=== PATIENT | male | born 1935 | race Caucasian/White ===

== ENCOUNTER 2020-09-09 15:54 | Inpatient (IN) | payer MEDICARE ==
[~2020-09-09] VITALS: Ht 182.9 cm; Wt 69.4 kg
--- NOTE | ~2020-09-09 | OP ---
[address] [address] OPERATIVE REPORT Name: LATONYA BROOKS Room: [address] IN .R.#: [id number] Admission: 09/09/20 Attend Phys: Wenceslao Crawford MD Discharge: Date of : 37 Report #: [id number] THIS REPORT FOR: cc: Zo Diane MD, Kristi MD Kesl, James B. DO ~ DOC #: [id number] Pedro Leach DO DATE OF SURGERY: 09/11/2020 PREOPERATIVE DIAGNOSIS: Right displaced femoral neck fracture. POSTOPERATIVE DIAGNOSIS: Right displaced femoral neck fracture. PROCEDURE: Right clary-hip arthroplasty. SURGEON: Pedro Leach DO. ASSISTANTS: 1. Maciel Guardado DO. 2. Chacorta Jacome DO. 3. Edison Knox DO. ANESTHESIA: General. ANTIBIOTICS: Ancef IV. FLUIDS: Please see anesthesia report. COMPLICATIONS: None. SPECIMENS: None. DRAINS: None. CONDITION OF THE PATIENT: Stable to PACU. IMPLANTS: Neli press-fit echo stem, standard offset, size 13, 53 bipolar shell with standard neck adaptor. INDICATIONS FOR PROCEDURE: Displaced femoral neck fracture. Obtained consent from power of state attorney. Family wished to have surgery for palliative pain control as well as mobilization as the patient is on hospice. DESCRIPTION OF PROCEDURE: I marked the right lower extremity in the presence of operative team members and everyone agreed correct. He was taken back to the [address] [address] OPERATIVE REPORT Name: LATONYA BROOKS Room: [address] IN M.R.#: [id number] Admission: 09/09/20 Attend Phys: Wenceslao Crawford MD Discharge: Date of : 36 Report #: [id number] operative suite, general anesthetic administered, transferred over to the operating table, placed in the left lateral decubitus position, well padded and secured. The right lower extremity was sterilely prepped and draped in standard fashion. Timeout performed, indicating correct patient, procedure, site, antibiotics and implants were present and sterile. All team members agreed. Anterolateral approach utilized, scalpel through skin, full thickness flaps down to the IT band and fascia incised. Charnley retractor was placed deep, glute medius and minimus taken off the trochanter, leaving a cuff of tissue for repair and also leaving a mallet undisturbed at the tip. Capsule was another layer. T capsulotomy performed, making sure the labrum was undisturbed and protected. Cleaned up the neck, cut one fingerbreadth above the lesser, removed the head and neck. No concerns. Findings were consistent with a standard femoral neck fracture, osteoporotic disease. We sized on the back table, trialed the 53 head within the acetabulum. This was appropriate in size, prepared the femur, box osteotome, canal finder, distal reamers and broaches. Size 13 was appropriate, good fit and fill. Based on preoperative templating, did not need increased offset. Therefore, the final 13 echo press-fit stem, standard offset, done on the back table, irrigated down the canal of the femur with normal saline and implanted the final stem uneventfully in a good position, had excellent stability and fit. Again, trialing went with standard, leg lengths were appropriate and stability was excellent in all planes. I could not find any episodes of instability or dislocation anywhere. We then dislocated the hip. Final 53 shell and standard neck adapter done on the back table, engaged on the Dang taper appropriately. Cleaned the acetabulum of any debris, reduced the hip. With all final components in place, there was excellent stability and placement of the components. No instability could be found anywhere. We irrigated thoroughly with normal saline, confirmed hemostasis, maintained. Closed the capsule with #1 Vicryl. Glutes were repaired with through bone sutures using #5 Ethibond and oversewn with #1 Vicryl. IT band and fascia were closed with #1 Vicryl and oversewn with #1 Stratafix, subq 2-0 Monocryl, skin 3-0 Stratafix and glue. Debriefing performed, confirming the procedure, blood loss and that all counts were correct and final. All team members agreed. A sterile silver dressing applied. He was transferred off the operative table with leg lengths appropriate. Abductor pillow placed, extubated and taken to PACU stable. POSTOPERATIVE COURSE AND EVALUATION. I spoke with his daughter and addressed questions she had to her satisfaction. She was thankful for my time and effort. He was resting in PACU, stable vital signs, pain controlled, neurovascularly intact. Compartments soft and compressible. No obvious signs of DVT. PACU films showed stable prosthesis, in good position and alignment. No fracture or dislocation. He will weightbear as tolerated, anterolateral hip precautions, PT, OT. DVT prophylaxis will be pharmacologic and mechanical as instructed. COVID protocol followed at all times. [address] [address] OPERATIVE REPORT Name: LATONYA BROOKS Room: [address]#: [id number] Admission: 09/09/20 Attend Phys: Wenceslao Crawford MD Discharge: Date of : 36 Report #: [id number] DO RISSA Simmons/MARYAM By: [id number] [id number] Leach DO /anabell
[~2020-09-09 15:54] MED LIST: ASPIRIN EC81 M1 PO; LISINOPRIL10 MG PO; OMEPRAZOLE 20 M20 M1 PO; OMEPRAZOLE PO; PLAVIX 75 MG TA75 M1 PO; PROTONIX40 M2 PO
[2020-09-09 16:02] VITALS: BP 165/69
[2020-09-09] MEDS ORDERED: ZYPREXA5 MG PO (16:11)
[2020-09-09] MEDS ORDERED: NEURONTIN300 MG PO (16:12)
[2020-09-09] MEDS ORDERED: LORAZEPAM 0.50.5 MG PO (16:13)
[2020-09-09] MEDS ORDERED: NORVASC5 MG PO (16:14)
--- NOTE | 2020-09-09 16:21 | NUR ---
NOTIFIED JULES TORRES STATUS OF PT AND POC WITH VERBALIZED UNDERSTANDING
[2020-09-09 16:23] LABS: HEMOGLOBIN 12.2 gm/dL (14.0-18.0); MCH 30.8 pg (26.0-34.0); MCHC 33.9 g/dL (28.0-37.0); MCV 90.8 fL (80.0-100.0); MPV 8.8 fl. (7.2-11.1); RBC 3.96 mil/uL (4.50-6.00); RDW-CV 13.9 % (10.5-14.5); WBC 14.9 thou/uL (4.0-11.0)
[2020-09-09 16:27] LABS: CALCIUM 8.1 mg/dL (8.5-10.1); CREATININE 1.6 mg/dL (0.6-1.3)
[2020-09-09 16:32] LABS: ALBUMIN 3.5 g/dL (3.4-5.0); TOTAL BILIRUBIN 0.8 mg/dL (<0.1-1.0); TOTAL PROTEIN 7.2 g/dL (6.4-8.2)
[2020-09-09 20:10] LABS: URINE BILIRUBIN NEGATIVE (Negative); URINE BLOOD 2+ (Negative); URINE CLARITY CLEAR; URINE COLOR YELLOW; URINE GLUCOSE-RANDOM NEGATIVE (Negative); URINE KETONES NEGATIVE (Negative); URINE LEUKOCYTES-REFLEX NEGATIVE (Negative); URINE NITRITE-REFLEX NEGATIVE (Negative); URINE PROTEIN TRACE (Negative)
[2020-09-09 20:26] LABS: MUCUS None Seen strn/LPF (None Seen); SQUAMOUS 0-3 Few /LPF (0-3); URINE RBC 3-10 Few /HPF (0-2)
[2020-09-09 20:27] LABS: BACTERIA-REFLEX None Seen /HPF (None Seen); CASTS None Seen /LPF (None Seen); CRYSTALS None Seen /LPF (None Seen); URINE WBC-REFLEX 0-5 Rare /HPF (0-5)
--- NOTE | 2020-09-09 21:00 | NUR ---
Spoke with RN at [facility]. Patient had been admitted this week for respite. He lived with family. Per family he walked. However, they attemted to walk him shortly after arrival with two staff members, and he gave out walking. They state he is very unsteady and has quite a bit of cognitive impairment. He fell the day before he arrived after half standing from wheelchair and then went to seated position on the floor. He is on hospice with [facility] they believe for end stage Alzheimers. I reported this to Dr. Crawford.
[2020-09-09 21:21] LABS: APTT 27.4 Seconds (25.0-31.3); INR 1.1; PROTIME 11.8 Seconds (9.20-11.50)
[2020-09-09 21:55] VITALS: BP 143/65
[2020-09-09 22:30] VITALS: BP 177/80
[2020-09-10 03:56] LABS: ABSOLUTE BASOPHILS 0.1 thou/uL (0.0-0.2); ABSOLUTE EOSINOPHILS 0.6 thou/uL (0.0-0.7); ABSOLUTE LYMPHOCYTES 1.7 thou/uL (0.8-5.3); ABSOLUTE MONOCYTES 0.7 thou/uL (0.0-1.2); ABSOLUTE NEUTROPHILS 7.8 thou/uL (1.6-8.1); BASOPHILS 0.5 %; EOSINOPHILS 5.6 %; HEMATOCRIT 30.3 % (42.0-52.0); HEMOGLOBIN 10.7 gm/dL (14.0-18.0); MCH 31.9 pg (26.0-34.0); MCHC 35.4 g/dL (28.0-37.0); MCV 90.1 fL (80.0-100.0); MONOCYTES 6.6 %; MPV 8.8 fl. (7.2-11.1); NUCLEATED RBCS 0 /100WBC; PLATELET COUNT* 117 thou/uL (150-400); POLYS 71.3 %; RBC 3.36 mil/uL (4.50-6.00); RDW-CV 13.8 % (10.5-14.5); WBC 10.9 thou/uL (4.0-11.0)
[2020-09-10] MEDS ORDERED: LORAZEPAM 0.50.5 MG PO (03:56)
[2020-09-10] MEDS ORDERED: DULCOLAX10 MG RECTAL (03:58)
[2020-09-10] MEDS ORDERED: ADULT ASPIRIN R81 MG PO (03:59)
[2020-09-10 04:08] LABS: CALCIUM 7.9 mg/dL (8.5-10.1); CREATININE 1.4 mg/dL (0.6-1.3); POTASSIUM 3.6 mmol/L (3.5-5.1)
[2020-09-10 08:00] VITALS: BP 157/79
--- NOTE | 2020-09-10 08:05 | NUR ---
PATIENT ARRIVED ON THE FLOOR AT ABOUT 2200. PATIENT ADMISSION HISTORY AND ASSESSMENT WAS COMPLETED CHARTED. PATIENT IS VERY CONFUSED CANT'T EVEN TELL ME HIS NAME. HISTORY WAS LIMITED FROM [facility]. PATIENT HAS BEEN INCONTINENT. PATIENT HAS BEEN NPO FOR POSSIBLE SURGERY TODAY. BED ALARM IS ON FOR PATIENT SAFETY. WILL CONTINUE TO MONITOR.
--- NOTE | 2020-09-10 14:16 | EKG ---
[place] [address] ELECTROCARDIOGRAM REPORT Name: LATONYA BROOKS Room: [address] ADM IN ..#: [id number] Admission: 09/09/20 Attend Phys: Wenceslao Crawford, Discharge: Date of : 37 Date of Service: 09/09/20 1558 Report #: [id number] THIS REPORT FOR: //name// [facility] ED Test Date: 2020-09-09 Test Time: 15:58:31 Pat Name: LATONYA BROOKS Department: Room: [facility] Gender: M Lead Etl Developer: : 1935 Requested By: Alber Judge Order Number: [id number] MD: Ernie Odell Measurements Intervals Malone Rate: 85 P: 118 SC: 160 QRS: -7 QRSD: 87 T: QT: 364 QTc: 433 Interpretive Statements Sinus rhythm Nonspecific repol abnormality, lateral leads Baseline wander in lead(s) V3 No previous ECG available for comparison Electronically Signed On 09-10-2020 14:16:06 CDT by Ernie Odell [email or web address] <ELECTRONICALLY SIGNED> By: Ernie Odell MD, FAC 09/10/20 1416 1558 1558 Ernie Odell MD, [facility] /EPI
[2020-09-10 16:15] VITALS: BP 131/74
--- NOTE | 2020-09-10 17:09 | NUR ---
PT AWAKE/ALERT. VSS. PT CONFUSED, CALLS OUT INTERMITTENTLY. PT REMAINS ON FALL PRECAUTIONS. BEDREST R/T HIP FX. SURGERY SCHEDULED FOR FRIDAY AM. 0730 PT TAKES PILLS CRUSHED IN CHOCOLATE PUDDING. IV TO R WRIST PATENT. SALINE LOCKED. EPISODES OF INCONTINENCE. FAMILY UPDATED THIS SHIFT. CONSENT SIGNED ON CHART. PT RESTS IN ROOM WITH CALL LIGHT IN REACH. WILL CONTINUE TO MONITOR
[2020-09-10 21:20] VITALS: BP 183/85
[2020-09-11 00:16] VITALS: BP 146/61
--- NOTE | 2020-09-11 06:04 | NUR ---
PATIENT SLEPT PART OF THE SHIFT. PATIENT HAS BEEN NPO SINCE MIDNIGHT FOR SURGERY TODAY. PATIENT WAS GIVEN PAIN MEDICINE ONCE THIS SHIFT. WILL CONTINUE TO MONITOR.
[2020-09-11 06:13] VITALS: BP 146/61
[2020-09-11 11:34] VITALS: BP 146/84
--- NOTE | 2020-09-11 14:21 | NUR ---
CM spoke with Pt's dtr in room. Per dtr, Pt was at [facility] for respite, Pt was current with [facility] hosp[facility]. Per dtr, Pt was ambulatory prior to going to [facility], per dtr, once at [facility], they put Pt in a wc and he never got up. Pt fell attempting to get up. In surgery while JASPER spoke with dtr. Plan is for Pt to dc to home, resume Hospice. Pt will likely need ambulance transport. Anticipate dc tomorrow.
[2020-09-11 16:35] VITALS: BP 141/67
--- NOTE | 2020-09-11 17:55 | NUR ---
PT REMAINED ALERT TO SELF. PT HAD SURGERY TODY. HIP PRECAUTIONS IN PLACE. PT RETAINED URINE, MARTINEZ PLACED. FALL RISK PRECAUTIONS IN PLACE. HOURLY ROUNDING COMPLETED. CALL LIGHT WITHIN REACH.
[2020-09-11 20:15] VITALS: BP 174/71
[2020-09-12 04:31] LABS: HEMATOCRIT 30.9 % (42.0-52.0); HEMOGLOBIN 10.6 gm/dL (14.0-18.0)
--- NOTE | 2020-09-12 05:20 | NUR ---
PT IS AO X1, PERSON ONLY, HE KEEPS CALLING OUT TO SOMEONE HE THINKS IS HERE, HE HAD A MARTINEZ PLACED FOR RETENTION AND HE IS PULLING AT THIS. PT LUNGS ARE CLEAR WITH SHALLOW BREATH SOUNDS, HR REGULAR AND PT DENIES COUGH AT THIS TIME. CALL LIGHT IN REACH FOR SAFETY,
[2020-09-12 07:20] VITALS: BP 170/82
[2020-09-12] MEDS ORDERED: ELIQUIS2.5 MG PO (07:21)
--- NOTE | 2020-09-12 11:43 | NUR ---
Surgery yesterday. Work on pain control today. Plan [place] [facility] [place]. Updated dtr in room.
--- NOTE | 2020-09-12 14:42 | NUR ---
WOUND NURSE: PATIENT SEEN TO ADDRESS SKIN TEAR ON THE LEFT ELBOW AT THE REQUEST OF HIS NURSE, AZALEA. NURSE REPORTS PATIENT PICKS AT IT AND PATIENT SUPPORTS THIS STATEMENT. MEASURES 1.7 X 2.0 X 0.1 CM. PARTIAL THICKNESS TISSUE LOSS AND EDGES CANNOT BE APPROXIMATED. CONTAINS PINK NONGRANULATING TISSUE IN THE WOUND BED AND SMALL AMOUNT OF SEROUSANGUINOUS DRAINAGE. WOUND CARE PROVIDED PRESCRIBED. PATIENT SLEEPY AND NON TEACHEABLE AT THIS TIME.
--- NOTE | 2020-09-12 15:46 | CON ---
[address] [address] CONSULTATION Name: LATONYA BROOKS Room: [address] IN M.R.#: [id number] Admission: 09/09/20 Attend Phys: Wenceslao Crawford MD Discharge: Date of : 36 Report #: [id number] THIS REPORT FOR: cc: Zo Diane MD, Kristi MD Liston, Michael J. MD [facility] ~ DOC #: [id number] Ernie Odell MD DATE OF CONSULTATION: 09/11/2011 INDICATION: Preoperative evaluation. HISTORY OF PRESENT ILLNESS: The patient is a 76-year-old gentleman who was admitted to the hospital with a hip fracture. The patient has been seen previously at [facility] by Dr. Carter Murcia for evaluation for syncopal episodes. In 2018, he had a loop recorder placed for continuous monitoring to rule out arrhythmia as a cause of syncope. The patient has been followed through remote interrogation since then. Remote interrogation showed no evidence of underlying cardiac dysrhythmia. An echocardiogram in 2018 showed an EF of 55-60% and was otherwise unremarkable. He denies any history of coronary disease. There is no documentation of any coronary disease. He does have a history of TIAs and hypertension. A 12-lead EKG shows sinus rhythm with some motion artifact, but no acute ST segment abnormalities. There are no pathologic Q waves. There is no history of recent myocardial infarction or congestive heart failure. PAST MEDICAL HISTORY: 1. TIA and stroke remotely. 2. Hypertension. 3. Gastroesophageal reflux. 4. Sleep apnea. 5. History of syncope. 6. Short-term memory loss. 7. Remote history of pneumonia. PAST SURGICAL HISTORY: Remote tonsillectomy. FAMILY HISTORY: Noncontributory. SOCIAL HISTORY: The patient lives in assisted care. There is no tobacco or alcohol use. REVIEW OF SYSTEMS: [place] [address] CONSULTATION Name: LATONYA BROOKS Room: [address]#: [id number] Admission: 09/09/20 Attend Phys: Wenceslao Crawford MD Discharge: Date of : 36 Report #: [id number] PHYSICAL EXAMINATION: VITAL SIGNS: Stable. Blood pressure 157/79, pulse is 75 and regular. GENERAL: This is an elderly gentleman who does not appear to be in distress. HEENT: Head is normocephalic, atraumatic. Extraocular muscles intact. Mucous membranes are moist. NECK: Shows no jugular venous distention. CHEST: Reveals clear lung pat. CARDIAC: Reveals a regular rhythm. I do not appreciate gallop or murmur. ABDOMEN: Examination of the abdomen reveals normal bowel sounds. The abdomen is soft, nontender. EXTREMITIES: Examination shows no significant edema. SKIN: Dry. IMAGING DATA: A 12-lead EKG shows sinus rhythm without acute ST or T-wave abnormality. Chest x-ray shows no acute cardiopulmonary abnormality. LABORATORY DATA: Labs are reviewed. Sodium 136, potassium 3.6, chloride 103, bicarbonate 26, BUN 36, creatinine 1.4, serum glucose 98. LFTs are within normal limits. Albumin 3.5. Troponin is less than 0.06. Coags are within normal limits. Hemoglobin 10.7, platelet count 117,000, white blood cell count 10.9. IMPRESSION AND RECOMMENDATIONS: 1. Preoperative evaluation for hip fracture. The patient is at no prohibitive risk from a cardiac standpoint to proceed with surgical repair. 2. History of syncope in the past. The patient has an implantable loop recorder in place. This has shown no significant cardiac dysrhythmias over the last 3 years. 3. Hypertension. Blood pressure mildly elevated, likely due to discomfort from hip fracture. This appears stable. 4. Short-term memory loss. 5. Renal insufficiency, appears chronic. From a cardiac standpoint, there is no contraindication to proceed with a hip repair. Ernie Odell MD [facility]/[place] [address] CONSULTATION Name: LATONYA BROOKS Room: [address] IN .R.#: [id number] Admission: 09/09/20 Attend Phys: Wenceslao Crawford MD Discharge: Date of : 36 Report #: [id number] <ELECTRONICALLY SIGNED> By: Ernie Odell MD, FACC 09/12/20 1546 1159 [id number] Odell MD, FACC /nt
[2020-09-12 16:00] VITALS: BP 130/53
--- NOTE | 2020-09-12 16:47 | NUR ---
PT REMAINED ALERT TO SELF. PT VERY CONFUSED THIS SHIFT. PAIN MEDICATION CHANGES MADE DUE TO INCREASING CONFUSION. MARTINEZ IN PLACE. HIP PRECAUTIONS IN PLACE. FALL RISK PRECAUTIONS IN PLACE. HOURLY ROUNDING COMPLETED.
[2020-09-12 21:00] VITALS: BP 136/73
[2020-09-13 00:40] VITALS: BP 111/53
[2020-09-13 04:35] LABS: ABSOLUTE EOSINOPHILS 0.4 thou/uL (0.0-0.7); ABSOLUTE LYMPHOCYTES 1.4 thou/uL (0.8-5.3); ABSOLUTE MONOCYTES 0.7 thou/uL (0.0-1.2); ABSOLUTE NEUTROPHILS 5.7 thou/uL (1.6-8.1); BASOPHILS 0.3 %; EOSINOPHILS 4.5 %; HEMATOCRIT 27.5 % (42.0-52.0); HEMOGLOBIN 9.3 gm/dL (14.0-18.0); LYMPHOCYTES 17.5 %; MCH 30.8 pg (26.0-34.0); MCHC 33.9 g/dL (28.0-37.0); MCV 90.7 fL (80.0-100.0); MONOCYTES 8.6 %; MPV 8.9 fl. (7.2-11.1); NUCLEATED RBCS 0 /100WBC; PLATELET COUNT* 140 thou/uL (150-400); POLYS 69.1 %; RBC 3.04 mil/uL (4.50-6.00); RDW-CV 13.7 % (10.5-14.5); WBC 8.3 thou/uL (4.0-11.0)
[2020-09-13 04:38] LABS: ALBUMIN 2.4 g/dL (3.4-5.0); CALCIUM 7.8 mg/dL (8.5-10.1); CREATININE 1.5 mg/dL (0.6-1.3); POTASSIUM 4.2 mmol/L (3.5-5.1); TOTAL BILIRUBIN 0.2 mg/dL (<0.1-1.0); TOTAL PROTEIN 5.6 g/dL (6.4-8.2)
--- NOTE | 2020-09-13 06:09 | NUR ---
PATIENT HAS RESTED WELL THROUGHOUT MOST OF THE NIGHT. VSS ON RA. PATIENT CONFUSED AND FORGETFUL, BUT HAS HISTORY OF DEMENTIA. PATIENT HAS REMAINED ON TOTAL HIP PRECAUTIONS. DRESSING TO LEFT HIP IS C/D/I, AND KELLY HOSE AND SCD'S IN PLACE. MEDICATIONS GIVEN ORDERED AND CHARTED. IV IN RIGHT WRIST-SL. FALL PRECAUTIONS IN PLACE AND HOURLY ROUNDS MADE. WILL CONTINUE WITH PLAN OF CARE AND NURSING TO MONITOR.
[2020-09-13 07:45] VITALS: BP 93/46
[2020-09-13 09:30] VITALS: BP 124/52
--- NOTE | 2020-09-13 10:09 | NUR ---
WOUND NURSE: PATIENT SEEN FOR FOLLOW UP ASSESSMENT POST LEFT ELBOW SKIN TEAR. MEASURES 1.7 X 2.0 X 0.1 CM. MODERATE AMOUNT OF YELLOW DRAINAGE NOTED UNDER THE SURESITE DEMONSTRATES A CONCERN FOR MACERATION. A RESULT ADDEDED AQUACEL AG AND GAUZE SPONGE TO ADDED ABSORPTION. THEN SECURED WITH TRANSPARENT DRESSING. THERE IS NO PERIWOUND REDNESS, WARMTH, OR INDURATION NOTED. PATIENT IS NOT TEACHEABLE.
[2020-09-13 16:34] VITALS: BP 136/54
--- NOTE | 2020-09-13 18:09 | NUR ---
PATIENT RESTING IN BED. PATIENT IS UP MAX ASSIST OF 2 WITH TRANSFERS. PATIENT IS CONFUSED. PATIENT IS COOPERATIVE AND HAS NOT TRIED TO GET OUT OF BED ALONE. PATIENT IS A FEEDER. PATIENT REPOSITIONED IN BED. PATIENT HAS ABDUCTION WEDGE BETWEEN LEGS. BED ALARM ON. WILL CONTINUE TO MONITOR.
[2020-09-13 22:00] VITALS: BP 169/94
[2020-09-14] VITALS: BP 146/61
[2020-09-14 04:00] VITALS: BP 174/78
--- NOTE | 2020-09-14 07:30 | NUR ---
PATIENT HAS SLEPT OFF AND ON DURING THE NIGHT BUT ANXIOUS AT TIMES. PATIENT CONFUSED BUT HAS HISTORY OF DEMENTIA. VSS ON RA. MEDICATIONS GIVEN ORDERED WITH APPLESAUCE. DRESSING TO LEFT HIP IS C/D/I WITH SMALL AMOUNT OF DRY DRAINAGE. ABBDUCTOR PILL IN PLACE AND KELLY HOSE IN PLACE. IV IN RIGHT HAND-SL. MARTINEZ TO DEPENDENT DRAINAGE WITH YELLOW URINE OUTPUT. FALL PRECAUTIONS IN PLACE AND HOURLY ROUNDS MADE. WILL CONTINUE WITH PLAN OF CARE AND NURSING TO MONITOR.
[2020-09-14 07:35] VITALS: BP 154/67
--- NOTE | 2020-09-14 10:30 | NUR ---
WOUND NURSE: FOLLOWED UP WITH PATIENT PERTAINING TO LEFT ELBOW WOUND. DRESSING IS CLEAN, DRY, AND INTACT. WILL CONTINUE WITH CURRENT DRESSING CHANGE.
--- NOTE | 2020-09-14 13:54 | NUR ---
PT recommending ARU prior to returning home. Dr and family in agreement. ARU consult placed. Await insurance auth
[2020-09-14 16:12] VITALS: BP 141/69
--- NOTE | 2020-09-14 17:42 | NUR ---
PATIENT RESTING IN BED. PATIENT UP TO CHAIR THIS AM. PATIENT IS UP MAX ASSIST OF 2. PATIENT DID WORK WITH PHYSICAL THERAPY TODAY. PATIENT IS CONFUSED AND UNABLE TO RATE PAIN. MARTINEZ CATHETER REMOVED AND PATIENT HAS NOT VOIDED YET. PATIENT BLADDER SCAN ONLY SHOWS 77ML AT THIS TIME. PATIENT EATS WITH ASSISTANCE AND HAS GOOD APPETITE. BED ALARM ON.
[2020-09-14 20:00] VITALS: BP 171/68
[2020-09-15 00:39] VITALS: BP 115/58
--- NOTE | 2020-09-15 05:11 | NUR ---
PT ORIENTED TO SELF, CONFUSED AND FORGETFUL. ON RA. PILLS CRUSHED AND GIVEN WITH APPLE SAUCE. DRESSING TO LT HIP INTACT. PT INCONTINENT AND URINATED SMALL AMOUNT. 550ML ON BLADDER SCAN. NOTIFIED AND ORDER RECEIVED. 600ML OUTPUT WITH STRAIGHT CATH. TURNS, HOURLY ROUNDINGS DONE. BED ALARM ON FOR SAFETY. WILL CONTINUE TO MONITOR.
[2020-09-15 08:05] VITALS: BP 112/49
--- NOTE | 2020-09-15 15:07 | NUR ---
OT reconsulted. Initiate ARU auth afterwards.
[2020-09-15 16:00] VITALS: BP 109/51
[2020-09-15 16:45] VITALS: BP 103/48
--- NOTE | 2020-09-15 17:41 | NUR ---
PATIENT RESTING IN BED. PATIENT IS UP MAX ASSIST FOR TRANSFERS. PATIENT WORKED WITH THERAPY. PATIENT WAS UP TO CHAIR THIS AM. PATIENT WAS UP TO COMMODE AND HAD SMALL BOWEL MOVEMENT. PATIENT WAS UNABLE TO VOID, DR ANDREWS NOTIFIED AND MARTINEZ CATHETER PLACED ORDERED. PATIENT HAS PAIN MANAGED WITH SCHEDULED MEDICATIONS AND ICE. ABDUCTOR PILLOW IN PLACE. BED ALARM ON. WILL CONTINUE TO MONITOR.
[2020-09-15 22:10] VITALS: BP 155/78
[2020-09-16 00:13] VITALS: BP 125/80
[2020-09-16 04:11] VITALS: BP 119/53
--- NOTE | 2020-09-16 07:39 | NUR ---
PATIENT HAS SLEPT OFF AND ON DURING THE NIGHT. VSS ON RA. MEDICATIONS GIVEN ORDERED AND CHARTED. DRESSING TO LEFT HIP INTACT ALTHOUGH PATIENT KEEPS PICKING AT DRESSING. MARTINEZ TO DEPENDENT DRAINAGE WITH YELLOW URINE OUTPUT. PATIENT TAKES MEDS CRUSHED WITH APPLESAUCE. IV IN RIGHT HAND-SL. FALL PRECAUTIONS IN PLACE AND HOURLY ROUNDS MADE. WILL CONTINUE WITH PLAN OF CARE AND NURSING TO MONITOR.
[2020-09-16 08:10] VITALS: BP 133/69
[2020-09-16 17:15] VITALS: BP 135/51
[2020-09-16 19:50] VITALS: BP 110/41
--- NOTE | 2020-09-17 04:46 | NUR ---
PT CONFUSED AND ALERT TO SELF. HE YELLS OUT AT NIGHT DOES NOT MAKE MUCH SENSE WHEN SPEAKING. HE IS ASSIST X 1-2/ MARTINEZ HAS SMALL AMOUNT OF OUTPUT. WE ENCOURAGED HYDRATION. HE HAD SEVERAL SMALL BOWEL MOVEMENTS OVERNIGHT. HE IS A Q2 TURN. TAKES PILLS CRUSED IN APPLESAUCE. HIS SKIN IS C/D/I. I REPLACED HIS SURGICAL DRESSING ON LEFT HIP. WILL CONTINUE TO MONITOR.
[2020-09-17 08:00] VITALS: BP 134/82
[2020-09-17 16:00] VITALS: BP 126/58
--- NOTE | 2020-09-17 17:38 | NUR ---
PT TAKING OFF HIS CLOTHES THIS AM AND PICKED OUT HIS SALINE LOCK. PT THROWING HIS LEGS OVER THE RAILS TRYING TO GET UP AND WALK HOME. VSS AFEBRILE. PT UP TO CHAIR WITH PT. PT HAS AHD A BM THIS DAY. PT ATE GOOD BREAKFAST AND LUNCH AND PICKED AT HIS SUPPER. WILL CONTINUE TO MONITOR PLAN OF CARE.
[2020-09-17 20:00] VITALS: BP 157/65
--- NOTE | 2020-09-18 04:16 | NUR ---
PATIENT HAS REMAINED ALERT AND ORIENTED X 1-2. RESTING AT INTERVALS ON HOURLY ROUNDS. UP TO BSC WITH MOD/MAX ASSIST OF ONE, GAIT BELT AND WALKER. SECOND STAFF MEMBER REQUIRED TO TRANSFER BACK TO BED TO PERFORM TOILETING HYGIENE. PATIENT REPOSITIONED Q2H BUT MOVING AROUND IN BED BETWEEN TURNS. HIP PRECAUTIONS MAINTAINED WITH WEDGE OR PILLOW. DRESSING LEFT HIP CLEAN AND DRY. DRESSING LEFT ELBOW OVER SKIN TEAR CHANGED PER PROTOCOL AT . KELLY HOSE CURRENTLY OFF. DRY ABRASION POSTERIOR LEFT THIGH NOTED AT HOSE ELASTIC TOP POSITION. SCHEDULED PAIN MEDICATION EFFECTIVE FOR REST. FALL PRECAUTIONS IN PLACE. CONTINUE TO MONITOR.
[2020-09-18 08:00] VITALS: BP 98/75
--- NOTE | 2020-09-18 12:29 | NUR ---
Nutrition: Pt admitted with fall, hip FX. Seen for LOS. Pt sound asleep at time of visit. Regular diet. Eating well. H/o dementia. LARISSA. Labs: BUN 38, cr 1.5, alb 2.4, prealb 13.4. Wt: 153#. Continue good meal intake, good hydration. Consider low nutrition risk at this time.
--- NOTE | 2020-09-18 14:18 | NUR ---
Continue to await insurance auth for ARU
--- NOTE | 2020-09-18 15:37 | NUR ---
WOUND NURSE: ASKED TO SEE PATIENT BY PT, KATELYNN PATEL, RPT WHO OBSERVED SHALLOW LINEAR EROSIONS ON BILAERAL POSTERIOR THIGHS.. LEFT POSTERIOR MEASURES 1.0 X 4.0 X 0.1 CM. RIGHT: 9.0 X 0.5 X 0.1 CM. EACH CONTAINS EPITHELIAL TISSUE WHICH IS PARTIALLY ERODED EXPOSIGN RED TO PINK NON GRANULAR TISSUE. THERE IS NO ACTIVE DRAINAGE NOTED. AGE OR CAUSE OF THESE EROSIONS AR NOT NOTED. CLEANSED WITH SOAP AND WATER, RINSED, CHEMA DRY. PATIENT IS NOT TEACHEABLE.
--- NOTE | 2020-09-18 16:02 | NUR ---
I have reviewed the documentation by FERYA INFANTE from 09/18/20 to 09/18/20 and I concur with it. BRITTA VILLA
[2020-09-18 16:48] VITALS: BP 162/91
--- NOTE | 2020-09-18 18:19 | NUR ---
PT AWAKE/ALERT, ORIENTED TO SELF. FALL PRECAUTIONS IN PLACE. DRESSING TO L HIP C/D/I. PT FORGETS TO USE CALL LIGHT BUT WILL CALL OUT. PT UP MAX ASSIST 1-2 W/WALKER AND GAIT BELT. MARTINEZ CATHETER IN PLACE FOR RETENTION. YELLOW URINE OBSERVED IN COLLECTION BAG. PT REMAINS ON ROOM AIR. PILLS CRUSHED IN PUDDING OR APPLESAUCE. WBAT . NO IV ACCESS PRESENT AT TIME OF ASSUSMING CARE OF PT THIS AM. PHYSICIAN AWARE, AND NO IV MEDICATIONS ORDERED. PT INCONTINENT OF BOWEL. PT RESTS IN BED WITH ALARM ON, CALL IGHT REMAINS IN REACH. WILL CONTINUE TO MONITOR
[2020-09-18 22:10] VITALS: BP 171/80
[2020-09-19 00:18] VITALS: BP 104/73
[2020-09-19 00:33] VITALS: BP 117/62
[2020-09-19 04:23] VITALS: BP 141/66
[2020-09-19 08:05] VITALS: BP 158/78
--- NOTE | 2020-09-19 08:08 | NUR ---
PATIENT SLEPT WELL THROUGHOUT MOST OF THE NIGHT. VSS ON RA. MEDICATIONS GIVEN ORDERE AND CHARTED. INCISION TO LEFT HIP IS WELL APPROXIMATED AND ARLENE. PATIENT PULLING DRESSING OFF. ORTHO HERE THIS AM AND NURSE NOTIFIED OF PATIENT PULLING DRESSING OFF. NO DRAINAGE NOTED. MARTINEZ TO DEPENDENT DRAINAGE WITH YELLOW URINE OUTPUT. PATIENT PULLING ON CATHETER AT TIMES AND PATIENT WILL NOT KEEP STAT LOCKS ON. FALL PRECAUTIONS IN PLACE AND HOURLY ROUNDS MADE. WILL CONTINUE WITH PLAN OF CARE AND NURSING TO MONITOR.
--- NOTE | 2020-09-19 12:42 | NUR ---
Continue to await insurance auth for ARU
[2020-09-19 15:59] VITALS: BP 158/56
--- NOTE | 2020-09-19 17:02 | NUR ---
PT AWAKE/ALERT, BUT CONFUSED THROUGHOUT SHIFT. PT NAPS INTERMITTENTLY. VSS. SX SITE OPEN TO AIR, INCISION C/D/I. MARTINEZ CATHETER PATENT, YELLOW URINE IN COLLECTION BAG. NO IV ACCESS, NO IV MEDS ORDERED AT THIS TIME. PILLS ADMINISTERED CRUSHED IN APPLESAUCE/PUDDING. FALL PRECAUTIONS REMAIN IN PLACE. PT UP MAX ASSIST 1-2 W/WALKER AND GAIT BELT. PT REMAINS ONM ROOM AIR, SAT >98% WBAT. PT RESTS IN BED WITH CALL LIGHT IN REACH, WILL CONTINUE TO MONITOR
[2020-09-19 21:00] VITALS: BP 161/64
[2020-09-20 04:09] LABS: ABSOLUTE BASOPHILS 0.1 thou/uL (0.0-0.2); ABSOLUTE EOSINOPHILS 0.4 thou/uL (0.0-0.7); ABSOLUTE LYMPHOCYTES 1.7 thou/uL (0.8-5.3); ABSOLUTE MONOCYTES 0.7 thou/uL (0.0-1.2); ABSOLUTE NEUTROPHILS 9.6 thou/uL (1.6-8.1); BASOPHILS 0.5 %; EOSINOPHILS 3.5 %; HEMOGLOBIN 10.1 gm/dL (14.0-18.0); LYMPHOCYTES 13.5 %; MCH 29.6 pg (26.0-34.0); MCHC 33.6 g/dL (28.0-37.0); MONOCYTES 5.7 %; MPV 7.4 fl. (7.2-11.1); NUCLEATED RBCS 0 /100WBC; PLATELET COUNT* 411 thou/uL (150-400); POLYS 76.8 %; RBC 3.41 mil/uL (4.50-6.00); RDW-CV 13.5 % (10.5-14.5); WBC 12.5 thou/uL (4.0-11.0)
[2020-09-20 04:31] LABS: CALCIUM 8.7 mg/dL (8.5-10.1); CREATININE 1.5 mg/dL (0.6-1.3); POTASSIUM 4.2 mmol/L (3.5-5.1)
--- NOTE | 2020-09-20 07:40 | NUR ---
PT SLEPT ON AND OFF OVERNIGHT, AWAKENS AT TIMES CONFUSED, CALLING OR HIS DAD OR TELLING HIS TO SHUT THE WATER OFF. MARTINEZ DRAINING DARK YELLOW URINE. NO IV ACCESS. LEFT HIP ORIF INCISION ARLENE, EDGES WELL APPROXIMATED. PT TURNED AND REPOSITIONED Q2 HOURS AND PRN. OPEN AREA TO BACK OF THIGHS PICTURED ON CHART. AM LABS. TAKES PILLS CRUSHED IN APPLESAUCE. PRN PAIN MED WHEN PT MOANING AND APPEARING UNCOMFORTABLE. DNR.L ELBOW DRSG TO SKIN TEAR.
[2020-09-20 08:56] VITALS: BP 139/69
--- NOTE | 2020-09-20 09:36 | NUR ---
Pt will dc to ARU today, family aware of POC.
[2020-09-20 15:59] VITALS: BP 139/69
== END 2020-09-20 17:41 | DRG 521 ==
LOC: M.ERS 15:54 → M.ORTHSURG 17:26 → M.TBA-ER 17:26 → M.ORTHSURG 21:54
PROVIDERS: Emergency Medicine Emergency Medical Services; Internal Medicine; Orthopaedic Surgery; ADMIT Internal Medicine; ATTEND Internal Medicine
PROC: 0SRS0JA Replacement of Left Hip Joint, Femoral Surface with Synthetic Substitute, Uncemented, Open Approach (ICD-10-PCS; principal; 2020-09-11)
DX: M80.052A Age-related osteoporosis with current pathological fracture, left femur, initial encounter for fracture (principal); G93.41 Metabolic encephalopathy; N17.9 Acute kidney failure, unspecified; D62 Acute posthemorrhagic anemia; Z20.822 Contact with and (suspected) exposure to COVID-19; K21.9 Gastro-esophageal reflux disease without esophagitis; K59.00 Constipation, unspecified; Z66 Do not resuscitate; Z51.5 Encounter for palliative care; D72.829 Elevated white blood cell count, unspecified; G30.9 Alzheimer's disease, unspecified; F02.80 Dementia in other diseases classified elsewhere, unspecified severity, without behavioral disturbance, psychotic disturbance, mood disturbance, and anxiety; R53.81 Other malaise; I12.9 Hypertensive chronic kidney disease with stage 1 through stage 4 chronic kidney disease, or unspecified chronic kidney disease; N18.9 Chronic kidney disease, unspecified; Z86.73 Personal history of transient ischemic attack (TIA), and cerebral infarction without residual deficits; Z79.899 Other long term (current) drug therapy; Z79.82 Long term (current) use of aspirin; Z91.018 Allergy to other foods; Z87.01 Personal history of pneumonia (recurrent)

== ENCOUNTER 2020-09-20 14:30 | Inpatient (IN) | payer MEDICARE ==
[~2020-09-20] VITALS: Ht 182.9 cm; Wt 60.1 kg
[~2020-09-20 14:30] MED LIST changes: +ADULT ASPIRIN R81 MG PO; +DULCOLAX10 MG RECTAL; +ELIQUIS2.5 MG PO; +LORAZEPAM 0.50.5 MG PO; +NEURONTIN300 MG PO; +NORVASC5 MG PO; +ZYPREXA5 MG PO
[2020-09-20 19:00] VITALS: BP 129/66
[2020-09-21 07:30] VITALS: BP 131/66
[2020-09-21 08:48] LABS: HEMOGLOBIN 10.1 gm/dL (14.0-18.0); MCH 29.8 pg (26.0-34.0); MCHC 33.8 g/dL (28.0-37.0); MCV 88.3 fL (80.0-100.0); MPV 6.9 fl. (7.2-11.1); RBC 3.39 mil/uL (4.50-6.00); RDW-CV 13.5 % (10.5-14.5); WBC 10.9 thou/uL (4.0-11.0)
[2020-09-21 08:52] LABS: CALCIUM 8.5 mg/dL (8.5-10.1); CREATININE 1.5 mg/dL (0.6-1.3)
[2020-09-21 19:55] VITALS: BP 143/74
[2020-09-22 08:00] VITALS: BP 112/50
[2020-09-22 20:35] VITALS: BP 139/57
[2020-09-23 07:57] VITALS: BP 134/65
[2020-09-23 20:27] VITALS: BP 148/72
[2020-09-24 07:50] VITALS: BP 171/81
[2020-09-24 19:10] VITALS: BP 168/78
[2020-09-25 07:50] VITALS: BP 117/61
[2020-09-25 20:00] VITALS: BP 129/62
[2020-09-26 07:32] VITALS: BP 158/62
[2020-09-26 19:00] VITALS: BP 152/57
[2020-09-27 04:35] LABS: HEMATOCRIT 27.4 % (42.0-52.0); HEMOGLOBIN 9.5 gm/dL (14.0-18.0); MCH 30.7 pg (26.0-34.0); MCHC 34.7 g/dL (28.0-37.0); MCV 88.5 fL (80.0-100.0); MPV 7.1 fl. (7.2-11.1); RBC 3.09 mil/uL (4.50-6.00); RDW-CV 13.6 % (10.5-14.5); WBC 10.1 thou/uL (4.0-11.0)
[2020-09-27 04:45] LABS: CALCIUM 8.3 mg/dL (8.5-10.1); CREATININE 1.5 mg/dL (0.6-1.3); POTASSIUM 3.9 mmol/L (3.5-5.1)
[2020-09-27 08:00] VITALS: BP 152/44
[2020-09-27 20:00] VITALS: BP 156/67
[2020-09-28 08:00] VITALS: BP 143/65
[2020-09-28 19:45] VITALS: BP 175/78
[2020-09-29 08:00] VITALS: BP 160/77
[2020-09-29 11:34] LABS: URINE BLOOD 3+ (Negative); URINE CLARITY CLEAR; URINE COLOR YELLOW; URINE GLUCOSE-RANDOM NEGATIVE (Negative); URINE KETONES TRACE (Negative); URINE LEUKOCYTES-REFLEX 1+ (Negative); URINE PROTEIN 2+ (Negative); URINE SPECIFIC GRAVITY >= 1.030 (1.005-1.030)
[2020-09-29 11:36] LABS: BACTERIA-REFLEX >30 Many /HPF (None Seen); CASTS None Seen /LPF (None Seen); CRYSTALS None Seen /LPF (None Seen); ICTOTEST (BILI CONFIRMATORY) Negative (Negative); SQUAMOUS 0-3 Few /LPF (0-3); URINE BILIRUBIN 1+ (Negative); URINE NITRITE-REFLEX POSITIVE (Negative); URINE RBC 0-2 Rare /HPF (0-2); URINE WBC-REFLEX >25 Many /HPF (0-5)
[2020-09-29 11:51] LABS: HEMATOCRIT 29.5 % (42.0-52.0); HEMOGLOBIN 9.9 gm/dL (14.0-18.0); MCH 29.9 pg (26.0-34.0); MCHC 33.5 g/dL (28.0-37.0); MCV 89.3 fL (80.0-100.0); MPV 7.2 fl. (7.2-11.1); RBC 3.3 mil/uL (4.50-6.00); RDW-CV 13.6 % (10.5-14.5); WBC 12.1 thou/uL (4.0-11.0)
[2020-09-29 11:59] LABS: CALCIUM 8.8 mg/dL (8.5-10.1); CREATININE 1.7 mg/dL (0.6-1.3); POTASSIUM 4.2 mmol/L (3.5-5.1)
[2020-09-29 20:00] VITALS: BP 161/81
[2020-09-30 08:10] VITALS: BP 133/57
[2020-09-30 19:00] VITALS: BP 144/72
[2020-10-01 08:00] VITALS: BP 152/75
[2020-10-01 20:00] VITALS: BP 178/82
[2020-10-02 08:00] VITALS: BP 145/67
[2020-10-02 19:00] VITALS: BP 117/59
[2020-10-03 07:43] VITALS: BP 137/68
[2020-10-03 19:00] VITALS: BP 136/62
[2020-10-04 04:47] LABS: HEMATOCRIT 26.1 % (42.0-52.0); MCH 30.6 pg (26.0-34.0); MCHC 34.4 g/dL (28.0-37.0); MCV 88.7 fL (80.0-100.0); MPV 7.6 fl. (7.2-11.1); RBC 2.94 mil/uL (4.50-6.00); WBC 7.9 thou/uL (4.0-11.0)
[2020-10-04 04:54] LABS: CALCIUM 8.5 mg/dL (8.5-10.1); CREATININE 1.3 mg/dL (0.6-1.3); POTASSIUM 4.1 mmol/L (3.5-5.1)
[2020-10-04 07:36] VITALS: BP 125/44
[2020-10-04 19:00] VITALS: BP 146/65
[2020-10-05 08:00] VITALS: BP 134/56
[2020-10-05 20:00] VITALS: BP 162/62
[2020-10-06 08:00] VITALS: BP 125/52
[2020-10-06 08:36] VITALS: BP 125/52
[2020-10-06] MEDS ORDERED: MACROBID 100 M100 M1 PO (12:40)
[2020-10-06] MEDS ORDERED: FLOMAX0.4 MG PO (12:40)
== END 2020-10-06 15:18 | disposition hospice, home (50) | DRG 535 ==
LOC: M.REH 14:30
PROVIDERS: Internal Medicine; ADMIT Physical Medicine & Rehabilitation; ATTEND Physical Medicine & Rehabilitation
DX: S72.002A Fracture of unspecified part of neck of left femur, initial encounter for closed fracture (principal); G93.41 Metabolic encephalopathy; N17.9 Acute kidney failure, unspecified; N39.0 Urinary tract infection, site not specified; K21.9 Gastro-esophageal reflux disease without esophagitis; G30.9 Alzheimer's disease, unspecified; F02.80 Dementia in other diseases classified elsewhere, unspecified severity, without behavioral disturbance, psychotic disturbance, mood disturbance, and anxiety; W18.39XA Other fall on same level, initial encounter; K59.00 Constipation, unspecified; R53.81 Other malaise; R33.9 Retention of urine, unspecified; N18.9 Chronic kidney disease, unspecified; I12.9 Hypertensive chronic kidney disease with stage 1 through stage 4 chronic kidney disease, or unspecified chronic kidney disease; Z86.73 Personal history of transient ischemic attack (TIA), and cerebral infarction without residual deficits; Y93.89 Activity, other specified; Y92.89 Other specified places as the place of occurrence of the external cause; Y99.8 Other external cause status